=== PATIENT | male | born 1995 | race Caucasian/White ===

== ENCOUNTER 2017-07-01 11:35 | Emergency (ER) | payer BC ==
--- NOTE | 2017-07-01 11:48 | ED Physician Documentation ---
General Adult - HISTORIAN Historian: patient, other (Girlfriend at bedside ) - HPI Stated Complaint: states since yesterday he has had an increased HR Chief Complaint: Dyspnea Additional Information: one day . He states that last night he was in a chair and he checked his heart rate via his watch and noted even after 20 minutes of rest he had a heart rate of 103 resting and he states he "checks" his heart rate frequently and it usually runs 65-68 when resting. He does note that this am he had tingling hands and feet with mild shortness of breath. He denies any heart conditions and denies any palpitations Timing: still present Severity: moderate Modifying Factors: He has tried to rest and does not feel this is helping Context: Notes his HR is increased via his watch and notes that he feels SOA Further Comments: no Last known Well Date: 06/29/17 Last Known Well Time: 08:00 Last known Well Code/Unknown Code: Unknown - ROS CONST: weakness. denies: fever, recent illness, weight loss, chills EYES/ENT: denies: problems with vision, sore throat CVS/RESP: shortness of breath. denies: chest pain, cough GI/: denies: abdominal pain, problems urinating, vomiting, nausea, diarrhea MS/SKIN/LYMPH: denies: rash NEURO/PSYCH: dizziness, tingling. denies: headache, fainting, numbness - PAST HX Past History: none Other History: none Surgeries/Procedures: none Allergies/Adverse Reactions: Allergies Allergy/AdvReac Type Severity Reaction Status Date / Time No Known Allergies Allergy Verified 07/01/17 12:45 Home Medications: Ambulatory Orders Medication Instructions Recorded Albuterol Sulfate [Proair HFA] 1 inh IH Q3 #1 hfa.aer.ad 07/01/17 Azithromycin [Zithromax] 250 mg PO DAILY #6 tablet 07/01/17 - SOCIAL HX Smoking History: non-smoker Alcohol Use: none Drug Use: none - FAMILY HX Family History: No - REVIEWED ASSESSMENTS Nursing Assessment Reviewed: Yes Vitals Reviewed: Yes ED Results Lab/Radiology - Radiology Radiology Impressions: Examination: PA and lateral chest. History: Evaluate lung lim. Comparison exam: None provided Findings: PA lateral chest demonstrate a normal cardiac and mediastinal silhouette. Mild right hilar haziness. No blunting of the costophrenic margins. Osseous structures demonstrate curvature to the right. Impression: Right hilar infiltrate. No effusion. Electronically signed on Jul 01, 2017 12:51:04 PM [employer] by: Edwin Maynard General Adult Physical Exam - PHYSICAL EXAM GENERAL APPEARANCE: mild distress EENT: eye inspection normal, BETSY NECK: normal inspection, thyroid normal, supple RESPIRATORY: no resp distress, chest non-tender, breath sounds normal CVS: reg rate & rhythm, heart sounds normal, equal pulses, no murmur ABDOMEN: soft, normal bowel sounds, no distension, non-tender SKIN: warm/dry, normal color EXTREMITIES: non-tender, normal range of motion, no evidence of injury NEURO: oriented X3, CN's nml as tested, motor nml, sensation nml, mood/affect nml, cognition normal Discharge Clincal Impression: Pneumonia Qualifiers: Pneumonia type: due to unspecified organism Laterality: right Lung location: middle lobe of lung Qualified Code(s): J18.1 - Lobar pneumonia, unspecified organism Prescriptions: Albuterol Sulfate [Proair HFA] 1 inh IH Q3 #1 hfa.aer.ad Azithromycin [Zithromax] 250 mg PO DAILY #6 tablet Referrals: Primary Doctor,No [Primary Care Provider] - 2 Days Condition: Stable Disposition: 01 HOME, SELF-CARE Decision to Admit: NO Date of Decison to Admit: 07/01/17 Decision Time: 13:07
[2017-07-01 12:09] LABS: BASOPHILS % 0.7 (0.0-1.5); EOSINOPHILS % 1.6 % (0.0-6.8); MEAN CORPUSCULAR VOLUME 89.6 fl (80.0-100.0); MONOCYTES % 6.1 % (0.0-11.0); NEUTROPHILS # 4.3 # k/uL (1.4-7.7)
[2017-07-01] MEDS ORDERED: 0.9 % SODIUM CHLORIDE 1,000 ML IV ONE (12:22)
[2017-07-01 12:24] LABS: eGFR (African) > 60; eGFR (Non-African) > 60
--- NOTE | 2017-07-01 13:15 | Diagnostic Imaging Report ---
DARIN ROBLEDO [facility] [id number] [facility] [address] [place], [place]. [address] Report Submission Date: Jul 01, 2017 12:51:04 PM CONSTRUCTION RECRUITER Patient Study Name: CESAR YATES Date: Jul 01, 2017 12:29:02 PM CONSTRUCTION RECRUITER Modality Type: CR Gender: M Description: CHEST : 89 Institution: [facility] Physician: DARIN ROBLEDO Examination: PA and lateral chest. History: Evaluate lung lim. Comparison exam: None provided Findings: PA lateral chest demonstrate a normal cardiac and mediastinal silhouette. Mild right hilar haziness. No blunting of the costophrenic margins. Osseous structures demonstrate curvature to the right. Impression: Right hilar infiltrate. No effusion. Electronically signed on Jul 01, 2017 12:51:04 PM CONSTRUCTION RECRUITER by: Edwin ALEJANDRO
[2017-07-01 13:28] VITALS: BP 104/61
== END 2017-07-01 13:15 | disposition home or self-care (01) ==
LOC: ED 11:35
DX: J18.1 Lobar pneumonia, unspecified organism (principal)
CPT/HCPCS: 71020; 80053; 85025; 85379; 93005; J7030; 96360; 99283; S1016